=== PATIENT | female | born 1995 | race Caucasian/White ===

== ENCOUNTER 2019-11-13 16:24 | Emergency (ER) | payer BC ==
[2019-11-13 16:30] VITALS: BP 123/81; PULSE 81; RESP 18; TEMP 98.2
[2019-11-13 17:39] LABS: Basophils % (A) 1 %; Eosinophils # (A) 0.1 k/uL (0-0.7); Eosinophils % (A) 2 %; HCT 42.2 % (34.0-46.0); HGB 13.9 gm/dL (11.4-16.0); Lymphocytes # (A) 1.3 k/uL (1.0-4.8); Lymphocytes % (A) 15 %; MCH 30.7 pg (25.0-35.0); MCV 92.8 fL (80.0-100.0); Mean Platelet Volume 8.8; Monocytes # (A) 0.4 k/uL (0-1.0); Monocytes % (A) 5 %; Neutrophils # (A) 6.6 k/uL (1.3-7.7); Neutrophils % (A) 76 %; Platelet Count 233 k/uL (150-450); RBC 4.55 m/uL (3.80-5.40); WBC 8.7 k/uL (3.8-10.6)
[2019-11-13 17:48] LABS: ALT 12 U/L (4-34); AST 23 U/L (14-36); African American GFR (CKD) >90 (>60 ml/min/1.73 sqM); Albumin 4.4 g/dL (3.5-5.0); Alkaline Phosphatase 42 U/L (38-126); Anion Gap 9 mmol/L; Blood Urea Nitrogen 8 mg/dL (7-17); Calcium 9.2 mg/dL (8.4-10.2); Carbon Dioxide 24 mmol/L (22-30); Chloride 104 mmol/L (98-107); Glucose 77 mg/dL (74-99); Magnesium 2.1 mg/dL (1.6-2.3); Non-African American GFR(CKD) >90 (>60 ml/min/1.73 sqM); Potassium 3.8 mmol/L (3.5-5.1); Sodium 137 mmol/L (137-145); Total Bilirubin 1.4 mg/dL (0.2-1.3); Total Protein 6.8 g/dL (6.3-8.2)
--- NOTE | 2019-11-13 17:52 | XR ---
EXAMINATION TYPE: XR chest 2V DATE OF EXAM: 11/13/2019 COMPARISON: NONE HISTORY: Chest pain TECHNIQUE: 2 views FINDINGS: Heart and mediastinum are normal. Lungs are clear. Diaphragm is normal. Bony thorax appears normal. There are chest leads. IMPRESSION: Normal chest. Normal heart.
--- NOTE | 2019-11-13 18:27 | ED ---
Chest Pain HPI - General Chief Complaint: Chest Pain Stated Complaint: Chest Pain Time Seen by Provider: 11/13/19 16:46 Source: patient Mode of arrival: ambulatory Limitations: no limitations - History of Present Illness Initial Comments: 23-year-old female past history of anxiety and bipolar presenting today for chief complaint of sharp left-sided chest pain. She states began 1045 she states it comes and goes and is not always present. She states she had SEVERAL month prior. Patient states she does have a history of anxiety but does not feel anxious. Patient denies any calf or leg pain or swelling. Patient denies any history of DVT pulmonary embolism denies exogenous hormone use denies recent surgeries immobilization or travel. Patient states she does have some pain with deep inspiration. Patient denies a family history of clotting disorders. Patient states that she is not taking control. She states she does carmine. Patient denies any upper respiratory symptoms or fevers. Denies cough. Patient is history of hypertension diabetes or premature CAD within family denies any chest pressure jaw pain or arm paresthesias. Patient denies nausea, vomiting abdominal pain. Denies radiation of pain or pain in the back. Patient has no additional complaints. Denies . Appears well nontoxic. Went to [facility] and was sent here. EKG evaluated from [facility] no significant findings - Related Data Previous Rx's Medication Instructions Recorded predniSONE [Deltasone] 20 mg PO DAILY 4 Days #4 tab 11/13/19 Allergies Allergy/AdvReac Type Severity Reaction Status Date / Time acetaminophen [From Tylenol] Allergy Unknown Verified 11/13/19 16:31 Latex, Natural Rubber Allergy Rash/Hives Verified 11/13/19 16:31 Review of Systems ROS Statement: Those systems with pertinent positive or pertinent negative responses have been documented in the HPI. ROS Other: All systems not noted in ROS Statement are negative. EKG Findings - EKG Comments: EKG Findings:: Ventricular rate 71 bpm, GA interval 170 ms, QRS mu-ism 70 ms, QT/QTC 382/415 milliseconds. This is sinus rhythm with sinus arrhythmia. No ST elevation or depression is noted. Past Medical History Past Medical History: No Reported History History of Any Multi-Drug Resistant Organisms: None Reported Additional Past Surgical History / Comment(s): biopsy Past Psychological History: Anxiety, Bipolar Smoking Status: Never smoker Past Alcohol Use History: None Reported, Occasional Past Drug Use History: Marijuana General Exam - General Exam Comments Initial Comments: General: The patient is awake and alert, in no distress, and does not appear acutely ill. Eye: Pupils are equal, round and reactive to light, extra-ocular movements are intact. No nystagmus. There is normal conjunctiva bilaterally. No signs of icterus. Ears, nose, mouth and throat: There are moist mucous membranes and no oral lesions. Neck: The neck is supple, there is no tenderness or JVD. Cardiovascular: There is a regular rate and rhythm. No murmur, rub or gallop is appreciated. Respiratory: Lungs are clear to auscultation, respirations are non-labored, breath sounds are equal. No wheezes, stridor, rales, or rhonchi. Gastrointestinal: Soft, non-distended, non-tender abdomen without masses or organomegaly noted. There is no rebound or guarding present. Musculoskeletal: Normal ROM, no tenderness. Strength 5/5. Sensation intact. Radial and DP pulses equal bilaterally 2+. Neurological: A&O x 3. CN II-XII intact, There are no obvious motor or sensory deficits. Coordination appears grossly intact. Speech is normal. Skin: Skin is warm and dry and no rashes or lesions are noted. No calf pain or swelling. (-) Homans. Psychiatric: Cooperative, appropriate mood & affect, normal judgment. Limitations: no limitations Course Vital Signs 11/13/19 16:26 Temperature 98.2 F Pulse Rate 81 Respiratory 18 Rate Blood Pressure 123/81 O2 Sat by Pulse 100 Oximetry Chest Pain MDM - MDM PERC (-). No CAD RF aside from vaping. Pain does not appear cardiac in nature. No evidence of pericarditis on EKg. No fevers, no troponin suggestive of myocarditis. patient CXR clear. No murmur on exam. No peripheral extremity findings. At this time feel patient is stable for discharge with PCP f/u. Recommend cardiology f/u if deemed fit byt PCP. Case discussed with attending provider and EKG was reviewed he is agreeable to care plan at discharge Disposition Clinical Impression: Chest pain of uncertain etiology Disposition: HOME SELF-CARE Condition: Good Instructions (If sedation given, give patient instructions): Chest Pain (ED), Pleurisy (ED) Additional Instructions: Please use medication as discussed. Please follow-up with family doctor in the next 2 days, recommend cardiology evaluation. Please return to emergency room if the symptoms increase or worsen or for any other concerns. Is patient prescribed a controlled substance at d/c from ED?: No Referrals: David Hoffman MD [Primary Care Provider] - 1-2 days Charles Smith MD [STAFF PHYSICIAN] - 1-2 days Time of Disposition: 18:27
== END 2019-11-13 18:32 | disposition home or self-care (01) ==
LOC: EC 16:24
DX: R07.1 Chest pain on breathing (principal); Z91.040 Latex allergy status; Z88.6 Allergy status to analgesic agent
CPT/HCPCS: 36415; 71046; 80053; 81025; 83735; 84484; 85025; 85379; 93005; 99284